=== PATIENT | male | born 1985 | race Caucasian/White ===

== ENCOUNTER 2019-09-08 05:22 | Day surgery (SDC) | payer OTHER ==
[~2019-09-08] VITALS: Ht 177.8 cm; Wt 121.5 kg
[2019-09-08] VITALS (9 sets, daily range): BP systolic 106–134; BP diastolic 58–76; PULSE 76–91; TEMP 97.6–98.1
--- NOTE | 2019-09-08 06:12 | NUR ---
CALL LIGHT IN REACH AT BEDSIDE.
--- NOTE | 2019-09-08 09:50 | NUR ---
TO RM 8 PER CART FROM PACU. DROWSY AND RESPONDS TO VERBAL AND FALLS BACK TO SLEEP. COOL WASHCLOTH OVER FOREHEAD. 02 SAT 92 OFF O2. O2 REAPPLIED AND O2 SAT 95% ON 2L. FULLER SET OVER INCISION SITES, CLEAN DRY INTACT. AT BEDSIDE.
--- NOTE | 2019-09-08 10:05 | NUR ---
PATIENT SLEEPING AND OPENS EYES AND FALLS BACK TO SLEEP.
--- NOTE | 2019-09-08 10:20 | NUR ---
SLEEPING WITH AT BEDSIDE.
--- NOTE | 2019-09-08 10:35 | NUR ---
RECEIVED WATER. ASSISTED PATIENT AND HE TOOK A FEW SIPS AND FELL BACK TO SLEEP.
--- NOTE | 2019-09-08 11:00 | NUR ---
BOTH PATIENT AND HIS SLEEPING.
--- NOTE | 2019-09-08 12:07 | NUR ---
MORE AWAKE AND ELEVATED HOB. PATIENT DRINKING WATER AND EATING CRACKERS.
--- NOTE | 2019-09-08 12:22 | NUR ---
RECEIVED APPLE SAUCE, APPLE JUICE AND MUFFIN.
--- NOTE | 2019-09-08 13:15 | NUR ---
DISCHARGED PER WC BY NURSING STAFF TO PRIVATE CAR IN CARE OF - MICHELLE.
--- NOTE | 2019-09-08 14:28 | NUR ---
RECIEVED DISCHARGE INSTRUCTIONS AND VERBALIZED UNDERSTANDING. DISCONTINUED IV AND INT- CATHETER INTACT PATIENTS ASSISTING PATIENT DRESSED
== END 2019-09-08 13:20 | disposition home or self-care (01) ==
LOC: SDCO 05:22
DX: K40.90 Unilateral inguinal hernia, without obstruction or gangrene, not specified as recurrent (principal)
CPT/HCPCS: C1781; J0360; J0690; J1100; J1170; J1885; J2405; J2550; J2704; J3010; J7120